=== PATIENT | female | born 1955 | race Two or more races ===

== ENCOUNTER 2023-04-06 23:01 | Inpatient (IN) | payer OTHER, MEDICAID ==
[~2023-04-06] VITALS: Ht 160 cm; Wt 55.1 kg
[2023-04-06 23:40] VITALS: PULSE 90; RESP 15; O2SAT 93
[2023-04-07] VITALS (10 sets, daily range): BP systolic 91–122; BP diastolic 55–90; PULSE 84–95; RESP 12–18; TEMP 97.5–97.9; O2SAT 96–100
[2023-04-07] MEDS ORDERED: DULO20CA PO (00:46)
[2023-04-07] MEDS ORDERED: PREG150C PO (00:46)
[2023-04-07] MEDS ORDERED: HYDR-4798 PO (00:46)
[2023-04-07] MEDS ORDERED: MAGNESIUM SULFATE 1GM/100ML 100 ML IV ONE (01:00)
[2023-04-07] MEDS ORDERED: ALBUMIN 25% 100 ML IV ONE (01:15)
[2023-04-07] MEDS ORDERED: LACTATED RINGER'S 1,000 ML IV ONE (01:15)
[2023-04-07] MEDS ORDERED: fentaNYL CITRATE 100 MCG/2 ML VL IV ONE (01:15)
[2023-04-07] MEDS ORDERED: ONDANSETRON HCL 4 MG/2 ML VIAL IV ONE (01:15)
[2023-04-07 01:20] LABS: Alanine Aminotransferase 288 U/L (7-40); Albumin 3.1 g/dL (3.2-4.8); Alkaline Phosphatase 431 U/L (46-116); Anion Gap 8 (5-15); Aspartate Aminotransferase 298 U/L (13-40); BUN/Creatinine Ratio 16.4 (10.0-20.0); Blood Urea Nitrogen 18 mg/dL (9-23); Calcium 8.1 mg/dL (8.7-10.4); Carbon Dioxide 21 mmol/L (20-30); Chloride 99 mmol/L (98-107); Glucose 107 mg/dL (74-106); Magnesium 1.9 mg/dL (1.6-2.6); Potassium 3.5 mmol/L (3.5-5.1); Sodium 128 mmol/L (136-145)
[2023-04-07 01:21] LABS: Bilirubin, Total 1.6 mg/dL (0.2-1.0); Total Protein 6.5 g/dL (5.7-8.2)
[2023-04-07 01:25] LABS: Hematocrit 30.6 % (36.0-46.0); Hemoglobin 8.8 g/dL (12.2-16.2); Mean Corpuscular Hemoglobin 19.1 pg (28.0-32.0); Mean Corpuscular Hgb Conc. 28.7 g/dL (32.0-36.0); Mean Corpuscular Volume 66.7 fL (80.0-100.0); White Blood Cell 19.3 10^3/uL (4.4-10.8)
[2023-04-07 01:28] LABS: INR 1.35 (0.9-1.15); Partial Thromboplastin Time 28.5 SEC (24.5-34.5); Prothrombin Time 13.9 sec (9.3-11.8)
[2023-04-07 01:33] LABS: Basophils % (manual) 0 (0.0-2.0); Blast Cells 0; Eosinophils % (manual) 0 (0-7); Metamyelocytes % 0; Myelocytes % 0; Promyelocytes % 0; Reactive Lymphocytes 0
[2023-04-07] MEDS ORDERED: VANCOMYCIN 1GM/250ML 250 ML IV ONE (02:00)
[2023-04-07] MEDS ORDERED: PIPERACILLIN-TAZOB 3.375GM 100 ML IV ONE (02:00)
[2023-04-07] MEDS ORDERED: LACTATED RINGER'S 1,350 ML IV ONE (02:00)
[2023-04-07] MEDS ORDERED: ENOXAPARIN SOD 60 MG/0.6 ML SYRINGE SC ONE (02:30)
[2023-04-07 03:05] LABS: Band Neutrophils % (manual) 4; Lymphocytes % (manual) 14 (10.0-50.0); Monocytes % (manual) 2 (0-12)
[2023-04-07 03:06] LABS: Anisocytosis Slight; Hypochromia Marked
[2023-04-07 03:08] LABS: Platelet Estimate Adequa
[2023-04-07] MEDS ORDERED: SODIUM CHLORIDE 0.9% 1,000 ML IV SCH (09:45)
[2023-04-07] MEDS ORDERED: ALBUTEROL SULF 2.5 MG/0.5ML(0.5%) NEB SOLN NEB PRN (09:45)
[2023-04-07] MEDS ORDERED: cefTRIAXone 1GM/50ML D5W 50 ML IV SCH (09:46)
[2023-04-07] MEDS ORDERED: AZITHROMYCIN 500MG/ 250ML 250 ML IV SCH (10:00)
[2023-04-07 10:31] LABS: Base Excess -4.4 mmol/L (-2.0-2.0)
[2023-04-07] MEDS: ALBUTEROL SULF 2.5 MG/0.5ML(0.5%) NEB SOLN NEB PRN (10:52)
[2023-04-07] MEDS: IPRATROPIUM BROM 0.5 MG/2.5ML INH SOL NEB PRN (10:52)
[2023-04-07 13:14] LABS: Hematocrit 24.9 % (36.0-46.0); Hemoglobin 7.1 g/dL (12.2-16.2)
[2023-04-07 15:11] LABS: Hepatitis B Surface Antigen Negative (Negative)
[2023-04-07 15:31] LABS: Hepatitis A Ab IgM Negative
[2023-04-07 15:32] LABS: Hepatitis B Core IgM Negative; Hepatitis C Antibody Negative (Negative)
[2023-04-07 16:05] LABS: Urine Bacteria FEW /hpf (None Seen); Urine Blood TRACE /uL (Negative); Urine Clarity HAZY (Clear); Urine Color Yellow (Yellow); Urine Protein, UAD 1+ (Negative); Urine Specific Gravity 1.021 (1.001-1.035); Urine Urobilinogen Normal (Negative); Urine WBC 68 /hpf (0 - 5)
[2023-04-07 16:09] LABS: Alanine Aminotransferase 242 U/L (7-40); Alkaline Phosphatase 363 U/L (46-116); Anion Gap 6 (5-15); BUN/Creatinine Ratio 14.9 (10.0-20.0); Blood Urea Nitrogen 15 mg/dL (9-23); Carbon Dioxide 24 mmol/L (20-30); Chloride 100 mmol/L (98-107); Glucose 121 mg/dL (74-106); Potassium 3.2 mmol/L (3.5-5.1); Sodium 130 mmol/L (136-145)
[2023-04-07 16:10] LABS: Albumin 3.3 g/dL (3.2-4.8); Aspartate Aminotransferase 172 U/L (13-40); Bilirubin, Total 1.4 mg/dL (0.2-1.0); Lactic Acid w/Reflex 2.8 mmol/L (0.4-2.0); Total Protein 6.4 g/dL (5.7-8.2)
[2023-04-07 16:14] LABS: Sodium Urine < 10 mmol/L (40-220)
[2023-04-07 16:21] LABS: Creatinine, Urine 61.11 mg/dL (30.0-125.0)
[2023-04-07 16:22] LABS: Amphetamine Screen, Urine Neg (NEGATIVE); Barbiturate Scree,Urine Neg (NEGATIVE); Benzodiazephine Screen, Urine Neg (NEGATIVE); Cannabinoid Screen, Urine Pos (NEGATIVE); Cocaine Screen, Urine Neg (NEGATIVE); Opiate Scree,Urine Pos (NEGATIVE); Phencyclidine Screen, Urine Neg (NEGATIVE)
[2023-04-07] MEDS: HYDROcodone-ACET 5/325MG TAB PO PRN (16:24)
[2023-04-07] MEDS ORDERED: AMIODARONE HCL 200 MG TAB PO ONE (16:45)
[2023-04-07] MEDS ORDERED: FUROSEMIDE 20 MG/2 ML VIAL IV ONE (16:45)
[2023-04-07] MEDS ORDERED: PANTOPRAZOLE 40 MG/10 ML VIAL INJ IV ONE (16:45)
[2023-04-07] MEDS ORDERED: DOBUTamine 1000MCG/ML 250 ML IV SCH (16:45)
[2023-04-07] MEDS ORDERED: POTASSIUM EFFERVESENT TAB 25 MEQ PO ONE (16:45)
[2023-04-07 17:08] LABS: COVID19 ANTIGEN SOFIA FIA NEGATIVE (NEGATIVE)
[2023-04-07 17:10] LABS: Triglycerides 129 mg/dL (< 150)
[2023-04-07 17:11] LABS: LDL Cholesterol 42 mg/dL (< 100)
[2023-04-07 17:12] LABS: Cholesterol 80 mg/dL (< 200); HDL Cholesterol < 5 mg/dL (40-59)
[2023-04-07] MEDS: FUROSEMIDE 20 MG/2 ML VIAL IV SCH (18:23)
[2023-04-07] MEDS ORDERED: SACUBITRIL-VALSARTAN 24mg/26mg TAB PO SCH (22:00)
[2023-04-07] MEDS: AMIODARONE HCL 200 MG TAB PO SCH (22:01)
[2023-04-08] VITALS (46 sets, daily range): BP systolic 72–120; BP diastolic 38–60; PULSE 54–104; RESP 10–21; TEMP 97–98.6; O2SAT 90–98
[2023-04-08 00:04] LABS: Hematocrit 21.8 % (36.0-46.0)
[2023-04-08 00:16] LABS: Hemoglobin 6.6 g/dL (12.2-16.2)
[2023-04-08] MEDS ORDERED: SODIUM CHLORIDE 0.9% 500 ML IV ONE (05:00)
[2023-04-08] MEDS: FUROSEMIDE 20 MG/2 ML VIAL IV SCH ×2 (06:34→18:11)
[2023-04-08] MEDS: EMPAGLIFLOZIN 10 MG TAB PO SCH (06:34)
[2023-04-08] MEDS ORDERED: NOREPINEPHRINE 8 MG/250ML KIT 250 ML IV ONE (07:16)
[2023-04-08] MEDS: NOREPINEPHRINE BITARTRATE 16 MG in SODIUM CHL 0.9% 234 ML IV SCH (07:30)
[2023-04-08 08:07] LABS: RPR Non Reactive (Non Reactive)
[2023-04-08] MEDS ORDERED: PIPERACILLIN-TAZOB 3.375GM 100 ML IV SCH (09:00)
[2023-04-08] MEDS ORDERED: ENOXAPARIN SOD 40 MG/0.4 ML SYRINGE SC SCH (10:00)
[2023-04-08] MEDS ORDERED: VANCOMYCIN PER PHARMACY 0 MG IV SCH (10:00)
[2023-04-08] MEDS: AMIODARONE HCL 200 MG TAB PO SCH ×2 (10:00→22:38)
[2023-04-08] MEDS: PANTOPRAZOLE 40 MG/10 ML VIAL INJ IV SCH (10:01)
[2023-04-08] MEDS: VANCOMYCIN 1GM/250ML 250 ML IV SCH ×2 (10:06→22:29)
[2023-04-08] MEDS ORDERED: POTASSIUM CHL 20MEQ/100ML 100 ML IV ONE (13:30)
[2023-04-08 14:16] LABS: Basophils # (auto) 0 10 ^3/uL (0-0.2); Basophils % (auto) 0.3 % (0.0-2.0); Eosinophils # (auto) 0.1 10 ^3/uL (0-0.8); Eosinophils % (auto) 0.5 % (0.0-7.0); Hematocrit 32.3 % (36.0-46.0); Lymphocytes # (auto) 1.1 10 ^3/uL (0.4-5.4); Lymphocytes % (auto) 8.2 % (10.0-50.0); Mean Corpuscular Hemoglobin 22.5 pg (28.0-32.0); Mean Corpuscular Hgb Conc. 31.1 g/dL (32.0-36.0); Mean Corpuscular Volume 72.3 fL (80.0-100.0); Monocytes # (auto) 0.7 10 ^3/uL (0-1.3); Monocytes % (auto) 5.2 % (0.0-12.0); Neutrophils # (auto) 11.7 10 ^3/uL (1.6-8.6); Neutrophils % (auto) 85.8 % (37.0-80.0); Nucleated Red Blood Cells % 0.3 %; Red Blood Cells 4.47 10^6/uL (4.0-5.20); White Blood Cell 13.6 10^3/uL (4.4-10.8)
[2023-04-08 14:17] LABS: Red Cell Distribution Width 28.5 % (11.8-14.3)
[2023-04-08 14:38] LABS: Alanine Aminotransferase 143 U/L (7-40); Albumin 2.6 g/dL (3.2-4.8); Alkaline Phosphatase 269 U/L (46-116); Anion Gap 4 (5-15); Aspartate Aminotransferase 84 U/L (13-40); BUN/Creatinine Ratio 13.5 (10.0-20.0); Bilirubin, Total 1.9 mg/dL (0.2-1.0); Blood Urea Nitrogen 17 mg/dL (9-23); Calcium 7.4 mg/dL (8.5-10.1); Carbon Dioxide 24 mmol/L (20-30); Chloride 103 mmol/L (98-107); Glucose 109 mg/dL (74-106); Magnesium 1.8 mg/dL (1.6-2.6); Potassium 3.8 mmol/L (3.5-5.1); Sodium 131 mmol/L (136-145); Total Protein 5.3 g/dL (5.7-8.2)
[2023-04-08] MEDS: CEFEPIME 2GM/50ML NS 50 ML IV SCH (23:49)
[2023-04-09] VITALS (52 sets, daily range): BP systolic 82–118; BP diastolic 47–68; PULSE 75–102; RESP 13–21; TEMP 97.6–98.3; O2SAT 83–99
[2023-04-09 05:10] LABS: Basophils # (auto) 0 10 ^3/uL (0-0.2); Basophils % (auto) 0.2 % (0.0-2.0); Eosinophils # (auto) 0.1 10 ^3/uL (0-0.8); Eosinophils % (auto) 0.5 % (0.0-7.0); Monocytes # (auto) 0.9 10 ^3/uL (0-1.3)
[2023-04-09 05:13] LABS: Hematocrit 35.4 % (36.0-46.0); Hemoglobin 11.1 g/dL (12.2-16.2); Lymphocytes # (auto) 1.5 10 ^3/uL (0.4-5.4); Lymphocytes % (auto) 10.5 % (10.0-50.0); Mean Corpuscular Hemoglobin 22.7 pg (28.0-32.0); Mean Corpuscular Hgb Conc. 31.4 g/dL (32.0-36.0); Mean Corpuscular Volume 72.1 fL (80.0-100.0); Monocytes % (auto) 6.2 % (0.0-12.0); Neutrophils # (auto) 11.7 10 ^3/uL (1.6-8.6); Neutrophils % (auto) 82.6 % (37.0-80.0); Nucleated Red Blood Cells % 0.5 %; Red Blood Cells 4.91 10^6/uL (4.0-5.20); White Blood Cell 14.2 10^3/uL (4.4-10.8)
[2023-04-09 05:16] LABS: Anion Gap 7 (5-15); Carbon Dioxide 24 mmol/L (20-30); Chloride 100 mmol/L (98-107); Potassium 3.4 mmol/L (3.5-5.1); Sodium 131 mmol/L (136-145)
[2023-04-09 05:17] LABS: Calcium 7.8 mg/dL (8.7-10.4)
[2023-04-09 05:22] LABS: BUN/Creatinine Ratio 10.4 (10.0-20.0); Blood Urea Nitrogen 14 mg/dL (9-23); Glucose 116 mg/dL (74-106)
[2023-04-09 05:31] LABS: Red Cell Distribution Width 28.8 % (11.8-14.3)
[2023-04-09] MEDS: EMPAGLIFLOZIN 10 MG TAB PO SCH (06:07)
[2023-04-09] MEDS: FUROSEMIDE 20 MG/2 ML VIAL IV SCH ×2 (06:07→17:52)
[2023-04-09] MEDS: IPRATROPIUM BROM 0.5 MG/2.5ML INH SOL NEB PRN (06:42)
[2023-04-09] MEDS: ALBUTEROL SULF 2.5 MG/0.5ML(0.5%) NEB SOLN NEB PRN (06:43)
[2023-04-09] MEDS: NOREPINEPHRINE BITARTRATE 16 MG in SODIUM CHL 0.9% 234 ML IV SCH (07:30)
[2023-04-09 07:44] LABS: Platelet Estimate Adequate
[2023-04-09 07:45] LABS: Anisocytosis Slight; Hypochromia Slight
[2023-04-09 07:46] LABS: Target Cell FEW
[2023-04-09] MEDS: VANCOMYCIN 1GM/250ML 250 ML IV SCH ×2 (10:37→21:59)
[2023-04-09] MEDS: AMIODARONE HCL 200 MG TAB PO SCH ×2 (10:39→22:00)
[2023-04-09] MEDS: PANTOPRAZOLE 40 MG/10 ML VIAL INJ IV SCH (10:39)
[2023-04-09] MEDS ORDERED: POTASSIUM CHL 20 Meq TABLET PO ONE ×2 (10:45→16:15)
[2023-04-09] MEDS: CEFEPIME 2GM/50ML NS 50 ML IV SCH ×2 (12:00→21:59)
[2023-04-09] MEDS: DOCUSATE SOD 100 MG CAP PO SCH (22:00)
[2023-04-10] VITALS (24 sets, daily range): BP systolic 96–126; BP diastolic 50–83; PULSE 70–91; RESP 13–22; TEMP 97.6–99.2; O2SAT 85–98
[2023-04-10 05:20] LABS: Chloride 100 mmol/L (98-107); Sodium 133 mmol/L (136-145)
[2023-04-10 05:21] LABS: Anion Gap 6 (5-15); Calcium 7.7 mg/dL (8.7-10.4); Carbon Dioxide 27 mmol/L (20-30)
[2023-04-10 05:26] LABS: BUN/Creatinine Ratio 8.3 (10.0-20.0); Blood Urea Nitrogen 10 mg/dL (9-23); Glucose 100 mg/dL (74-106)
[2023-04-10 05:37] LABS: Potassium 2.8 mmol/L (3.5-5.1)
[2023-04-10 05:42] LABS: Basophils # (auto) 0 10 ^3/uL (0-0.2); Eosinophils # (auto) 0.3 10 ^3/uL (0-0.8); Eosinophils % (auto) 2.4 % (0.0-7.0); Hematocrit 36.3 % (36.0-46.0); Hemoglobin 11.1 g/dL (12.2-16.2); Lymphocytes # (auto) 1.2 10 ^3/uL (0.4-5.4); Lymphocytes % (auto) 11.3 % (10.0-50.0); Mean Corpuscular Hemoglobin 22.6 pg (28.0-32.0); Mean Corpuscular Hgb Conc. 30.7 g/dL (32.0-36.0); Mean Corpuscular Volume 73.7 fL (80.0-100.0); Monocytes # (auto) 0.7 10 ^3/uL (0-1.3); Monocytes % (auto) 6.7 % (0.0-12.0); Neutrophils # (auto) 8.6 10 ^3/uL (1.6-8.6); Neutrophils % (auto) 79.6 % (37.0-80.0); Nucleated Red Blood Cells % 0.4 %; Red Blood Cells 4.92 10^6/uL (4.0-5.20); White Blood Cell 10.8 10^3/uL (4.4-10.8)
[2023-04-10 05:43] LABS: Red Cell Distribution Width 29.5 % (11.8-14.3)
[2023-04-10] MEDS: FUROSEMIDE 20 MG/2 ML VIAL IV SCH ×2 (05:54→17:03)
[2023-04-10] MEDS: POTASSIUM CHL 20MEQ/100ML 100 ML IV SCH ×3 (05:55→09:45)
[2023-04-10 06:27] LABS: Platelet Estimate Adequate
[2023-04-10 06:28] LABS: Anisocytosis Slight; Hypochromia Slight; Target Cell FEW
[2023-04-10 06:29] LABS: Stomatocytes Few; Tear Drop Cells FEW
[2023-04-10] MEDS: EMPAGLIFLOZIN 10 MG TAB PO SCH (06:44)
[2023-04-10] MEDS: NOREPINEPHRINE BITARTRATE 16 MG in SODIUM CHL 0.9% 234 ML IV SCH (07:30)
[2023-04-10] MEDS: DOCUSATE SOD 100 MG CAP PO SCH ×2 (07:45→22:00)
[2023-04-10] MEDS: AMIODARONE HCL 200 MG TAB PO SCH ×2 (07:52→22:55)
[2023-04-10] MEDS: PANTOPRAZOLE 40 MG/10 ML VIAL INJ IV SCH (07:53)
[2023-04-10] MEDS: CEFEPIME 2GM/50ML NS 50 ML IV SCH ×2 (08:00→22:47)
[2023-04-10] MEDS: VANCOMYCIN 1GM/250ML 250 ML IV SCH (10:00)
[2023-04-10] MEDS ORDERED: POTASSIUM CHLORIDE 80 MEQ, LIDOCAINE 1% (LOCAL ANESTH.) 6 ML in SODIUM CHL 0.9% 500 ML IV ONE (13:15)
[2023-04-10] MEDS: VANCOMYCIN HCL 125MG/5ML ORAL SOL PO SCH ×2 (17:03→22:00)
[2023-04-10 18:13] LABS: Potassium 3.3 mmol/L (3.5-5.1)
[2023-04-10 18:19] LABS: Magnesium 1.6 mg/dL (1.6-2.6)
[2023-04-11] VITALS (20 sets, daily range): BP systolic 108–127; BP diastolic 56–79; PULSE 73–106; RESP 8–22; TEMP 97.4–98.3; O2SAT 91–98
[2023-04-11 05:04] LABS: Basophils # (auto) 0 10 ^3/uL (0-0.2); Eosinophils # (auto) 0.1 10 ^3/uL (0-0.8); Lymphocytes # (auto) 1.4 10 ^3/uL (0.4-5.4); Lymphocytes % (auto) 15.6 % (10.0-50.0); Neutrophils # (auto) 6.4 10 ^3/uL (1.6-8.6); Nucleated Red Blood Cells % 0.2 %
[2023-04-11 05:07] LABS: Basophils % (auto) 0.1 % (0.0-2.0); Eosinophils % (auto) 0.7 % (0.0-7.0); Hematocrit 36.9 % (36.0-46.0); Hemoglobin 11.7 g/dL (12.2-16.2); Mean Corpuscular Hgb Conc. 31.6 g/dL (32.0-36.0); Mean Corpuscular Volume 72.8 fL (80.0-100.0); Monocytes # (auto) 1.1 10 ^3/uL (0-1.3); Monocytes % (auto) 12.2 % (0.0-12.0); Neutrophils % (auto) 71.4 % (37.0-80.0); Red Blood Cells 5.06 10^6/uL (4.0-5.20)
[2023-04-11 05:09] LABS: Red Cell Distribution Width 29.9 % (11.8-14.3)
[2023-04-11 05:12] LABS: Anion Gap 6 (5-15); Carbon Dioxide 28 mmol/L (20-30); Chloride 98 mmol/L (98-107); Sodium 132 mmol/L (136-145)
[2023-04-11 05:13] LABS: Calcium 7.9 mg/dL (8.7-10.4)
[2023-04-11 05:18] LABS: BUN/Creatinine Ratio 9.3 (10.0-20.0); Blood Urea Nitrogen 11 mg/dL (9-23); Glucose 115 mg/dL (74-106)
[2023-04-11 05:39] LABS: Potassium 2.7 mmol/L (3.5-5.1)
[2023-04-11 06:00] LABS: Anisocytosis Marked; Platelet Estimate Adequate
[2023-04-11] MEDS: VANCOMYCIN HCL 125MG/5ML ORAL SOL PO SCH ×3 (06:00→22:00)
[2023-04-11 06:01] LABS: Hypochromia Moderate
[2023-04-11] MEDS ORDERED: POTASSIUM CHL 20 Meq TABLET PO ONE (07:15)
[2023-04-11] MEDS: FUROSEMIDE 20 MG/2 ML VIAL IV SCH ×2 (08:04→18:00)
[2023-04-11] MEDS: EMPAGLIFLOZIN 10 MG TAB PO SCH (08:05)
[2023-04-11] MEDS: CEFEPIME 2GM/50ML NS 50 ML IV SCH (10:11)
[2023-04-11] MEDS: PANTOPRAZOLE 40 MG/10 ML VIAL INJ IV SCH (10:11)
[2023-04-11] MEDS: FLORASTOR (S. BOULARDII) 250 MG CAP PO SCH (10:13)
[2023-04-11] MEDS: DOCUSATE SOD 100 MG CAP PO SCH (10:13)
[2023-04-11] MEDS: AMIODARONE HCL 200 MG TAB PO SCH ×2 (10:13→23:26)
[2023-04-11] MEDS ORDERED: POTASSIUM CHLORIDE 40 MEQ, LIDOCAINE 1% (LOCAL ANESTH.) 4 ML in SODIUM CHL 0.9% 250 ML IV ONE (12:45)
[2023-04-11] MEDS ORDERED: POTASSIUM CHL 20MEQ/100ML 100 ML IV SCH (12:45)
[2023-04-11] MEDS: Ensure HIGH Protein Chocolate 8oz Bottle PO SCH (18:00)
[2023-04-12] VITALS (12 sets, daily range): BP systolic 108–146; BP diastolic 63–96; PULSE 54–104; RESP 16–20; TEMP 97.8–98.2; O2SAT 92–97
[2023-04-12] MEDS: EMPAGLIFLOZIN 10 MG TAB PO SCH (05:56)
[2023-04-12] MEDS: VANCOMYCIN HCL 125MG/5ML ORAL SOL PO SCH ×4 (05:57→21:26)
[2023-04-12] MEDS: FUROSEMIDE 20 MG/2 ML VIAL IV SCH ×2 (05:58→18:01)
[2023-04-12] MEDS: Ensure HIGH Protein Chocolate 8oz Bottle PO SCH ×3 (08:00→18:00)
[2023-04-12] MEDS: FLORASTOR (S. BOULARDII) 250 MG CAP PO SCH (10:24)
[2023-04-12] MEDS: PANTOPRAZOLE 40 MG/10 ML VIAL INJ IV SCH (10:24)
[2023-04-12] MEDS: AMIODARONE HCL 200 MG TAB PO SCH ×2 (10:24→21:27)
[2023-04-12] MEDS: HYDROcodone-ACET 5/325MG TAB PO PRN (10:25)
[2023-04-12 15:03] LABS: Basophils # (auto) 0 10 ^3/uL (0-0.2); Eosinophils # (auto) 0.1 10 ^3/uL (0-0.8); Lymphocytes # (auto) 1.4 10 ^3/uL (0.4-5.4); Lymphocytes % (auto) 11.2 % (10.0-50.0)
[2023-04-12 15:04] LABS: Basophils % (auto) 0.1 % (0.0-2.0); Eosinophils % (auto) 0.5 % (0.0-7.0); Hematocrit 41.7 % (36.0-46.0); Mean Corpuscular Hemoglobin 22.8 pg (28.0-32.0); Mean Corpuscular Hgb Conc. 31.2 g/dL (32.0-36.0); Monocytes # (auto) 0.1 10 ^3/uL (0-1.3); Monocytes % (auto) 0.6 % (0.0-12.0); Neutrophils % (auto) 87.6 % (37.0-80.0); Nucleated Red Blood Cells % 0.1 %; Red Blood Cells 5.72 10^6/uL (4.0-5.20); White Blood Cell 12.6 10^3/uL (4.4-10.8)
[2023-04-12 15:13] LABS: Red Cell Distribution Width 30.8 % (11.8-14.3)
[2023-04-12] MEDS ORDERED: CARVEDILOL 3.125 MG TAB PO ONE (15:30)
[2023-04-12] MEDS: CARVEDILOL 3.125 MG TAB PO SCH (21:27)
[2023-04-12 21:42] LABS: Alanine Aminotransferase 82 U/L (7-40); Albumin 3.3 g/dL (3.2-4.8); Alkaline Phosphatase 272 U/L (46-116); Anion Gap 5 (5-15); Aspartate Aminotransferase 34 U/L (13-40); BUN/Creatinine Ratio 9.5 (10.0-20.0); Bilirubin, Total 1.5 mg/dL (0.2-1.0); Blood Urea Nitrogen 11 mg/dL (9-23); Calcium 8.2 mg/dL (8.7-10.4); Carbon Dioxide 32 mmol/L (20-30); Chloride 94 mmol/L (98-107); Glucose 122 mg/dL (74-106); Magnesium 1.6 mg/dL (1.6-2.6); Sodium 131 mmol/L (136-145)
[2023-04-12 21:43] LABS: Total Protein 6.2 g/dL (5.7-8.2)
[2023-04-12 21:45] LABS: Potassium 2.3 mmol/L (3.5-5.1)
[2023-04-12] MEDS: POTASSIUM CHL 20 Meq TABLET PO SCH (23:00)
[2023-04-13] VITALS (8 sets, daily range): BP systolic 95–150; BP diastolic 51–87; PULSE 64–82; RESP 16–18; TEMP 97.6–98.7; O2SAT 94–98
[2023-04-13] MEDS: POTASSIUM CHL 20 Meq TABLET PO SCH (00:35)
[2023-04-13] MEDS: EMPAGLIFLOZIN 10 MG TAB PO SCH (05:50)
[2023-04-13] MEDS: FUROSEMIDE 20 MG/2 ML VIAL IV SCH (05:50)
[2023-04-13] MEDS: VANCOMYCIN HCL 125MG/5ML ORAL SOL PO SCH ×4 (05:51→21:43)
[2023-04-13] MEDS: Ensure HIGH Protein Chocolate 8oz Bottle PO SCH ×3 (08:00→17:09)
[2023-04-13] MEDS: POTASSIUM CHL 20MEQ/100ML 100 ML IV SCH ×2 (08:39→10:21)
[2023-04-13 09:40] LABS: Basophils # (auto) 0.1 10 ^3/uL (0-0.2); Eosinophils # (auto) 0 10 ^3/uL (0-0.8); Eosinophils % (auto) 0.4 % (0.0-7.0); Mean Corpuscular Hemoglobin 22.8 pg (28.0-32.0)
[2023-04-13 09:41] LABS: Basophils % (auto) 1.2 % (0.0-2.0); Hemoglobin 12.4 g/dL (12.2-16.2); Lymphocytes # (auto) 1.5 10 ^3/uL (0.4-5.4); Lymphocytes % (auto) 13.1 % (10.0-50.0); Mean Corpuscular Hgb Conc. 30.9 g/dL (32.0-36.0); Mean Corpuscular Volume 73.8 fL (80.0-100.0); Monocytes % (auto) 8.8 % (0.0-12.0); Neutrophils # (auto) 8.5 10 ^3/uL (1.6-8.6); Neutrophils % (auto) 76.5 % (37.0-80.0); Nucleated Red Blood Cells % 0.1 %; Red Blood Cells 5.42 10^6/uL (4.0-5.20); White Blood Cell 11.1 10^3/uL (4.4-10.8)
[2023-04-13 09:43] LABS: Red Cell Distribution Width 31.3 % (11.8-14.3)
[2023-04-13 09:51] LABS: Alanine Aminotransferase 84 U/L (7-40); Alkaline Phosphatase 267 U/L (46-116); Aspartate Aminotransferase 50 U/L (13-40); Blood Urea Nitrogen 8 mg/dL (9-23); Calcium 8.5 mg/dL (8.5-10.1); Carbon Dioxide 29 mmol/L (20-30); Glucose 108 mg/dL (74-106); Magnesium 1.4 mg/dL (1.6-2.6)
[2023-04-13 09:52] LABS: Bilirubin, Total 1.8 mg/dL (0.2-1.0); Total Protein 6.6 g/dL (5.7-8.2)
[2023-04-13] MEDS ORDERED: LOSARTAN POTASSIUM 50 MG TAB PO SCH (10:00)
[2023-04-13] MEDS ORDERED: POTASSIUM CHL 20 Meq TABLET PO SCH (10:00)
[2023-04-13] MEDS: DULoxetine HCL 30 MG CAP PO SCH (10:21)
[2023-04-13] MEDS: CARVEDILOL 3.125 MG TAB PO SCH ×2 (10:22→21:44)
[2023-04-13] MEDS: PANTOPRAZOLE 40 MG TAB PO SCH (10:23)
[2023-04-13] MEDS: FLORASTOR (S. BOULARDII) 250 MG CAP PO SCH (10:23)
[2023-04-13] MEDS: AMIODARONE HCL 200 MG TAB PO SCH ×3 (10:23→21:43)
[2023-04-13] MEDS: SPIRONOLACTONE 25 MG TAB PO SCH (10:23)
[2023-04-13 10:57] LABS: Anion Gap 9 (5-15); Chloride 95 mmol/L (98-107); Potassium 3.1 mmol/L (3.5-5.1); Sodium 133 mmol/L (136-145)
[2023-04-13] MEDS ORDERED: metroNIDAZOLE 500 MG TAB PO ONE (11:30)
[2023-04-13 11:59] LABS: Anisocytosis Moderate; Hypochromia Moderate; Platelet Estimate Adequate
[2023-04-13 12:00] LABS: Target Cell FEW
[2023-04-13] MEDS: MAGNESIUM SULFATE 1GM/100ML 100 ML IV SCH ×4 (12:00→14:37)
[2023-04-13] MEDS: metroNIDAZOLE 500 MG TAB PO SCH ×2 (14:38→21:44)
[2023-04-13] MEDS ORDERED: FUROSEMIDE 40 MG/4 ML VIAL IV SCH (18:00)
[2023-04-14] VITALS (8 sets, daily range): BP systolic 82–110; BP diastolic 43–84; PULSE 58–79; RESP 16–18; TEMP 97.4–98.5; O2SAT 92–98
[2023-04-14] MEDS: VANCOMYCIN HCL 125MG/5ML ORAL SOL PO SCH ×4 (05:47→22:19)
[2023-04-14] MEDS: EMPAGLIFLOZIN 10 MG TAB PO SCH (05:48)
[2023-04-14] MEDS: metroNIDAZOLE 500 MG TAB PO SCH ×3 (05:48→22:18)
[2023-04-14 06:02] LABS: Basophils # (auto) 0 10 ^3/uL (0-0.2); Eosinophils # (auto) 0.1 10 ^3/uL (0-0.8); Eosinophils % (auto) 0.7 % (0.0-7.0); Hemoglobin 11.6 g/dL (12.2-16.2); Nucleated Red Blood Cells % 0.1 %
[2023-04-14 06:05] LABS: Basophils % (auto) 0.5 % (0.0-2.0); Hematocrit 36.6 % (36.0-46.0); Lymphocytes # (auto) 1.5 10 ^3/uL (0.4-5.4); Lymphocytes % (auto) 15.1 % (10.0-50.0); Mean Corpuscular Hemoglobin 23.4 pg (28.0-32.0); Mean Corpuscular Hgb Conc. 31.7 g/dL (32.0-36.0); Mean Corpuscular Volume 73.9 fL (80.0-100.0); Monocytes % (auto) 10.1 % (0.0-12.0); Neutrophils # (auto) 7.1 10 ^3/uL (1.6-8.6); Neutrophils % (auto) 73.6 % (37.0-80.0); Red Blood Cells 4.96 10^6/uL (4.0-5.20)
[2023-04-14 06:21] LABS: Red Cell Distribution Width 31.6 % (11.8-14.3)
[2023-04-14 06:22] LABS: White Blood Cell 9.7 10^3/uL (4.4-10.8)
[2023-04-14 06:23] LABS: Alanine Aminotransferase 66 U/L (7-40); Albumin 3.2 g/dL (3.2-4.8); Alkaline Phosphatase 266 U/L (46-116); Anion Gap 4 (5-15); Aspartate Aminotransferase 37 U/L (13-40); BUN/Creatinine Ratio 8.5 (10.0-20.0); Bilirubin, Total 1.3 mg/dL (0.2-1.0); Blood Urea Nitrogen 13 mg/dL (9-23); Calcium 8.6 mg/dL (8.7-10.4); Carbon Dioxide 32 mmol/L (20-30); Chloride 94 mmol/L (98-107); Glucose 106 mg/dL (74-106); Sodium 130 mmol/L (136-145); Total Protein 6.1 g/dL (5.7-8.2)
[2023-04-14] MEDS ORDERED: FUROSEMIDE 40 MG/4 ML VIAL IV SCH (07:00)
[2023-04-14] MEDS ORDERED: POTASSIUM EFFERVESENT TAB 25 MEQ PO ONE (07:15)
[2023-04-14] MEDS ORDERED: POTASSIUM CHL 20 Meq TABLET PO ONE (07:30)
[2023-04-14] MEDS: Ensure HIGH Protein Chocolate 8oz Bottle PO SCH ×2 (08:00→12:00)
[2023-04-14] MEDS: SPIRONOLACTONE 25 MG TAB PO SCH (10:00)
[2023-04-14] MEDS: CARVEDILOL 3.125 MG TAB PO SCH ×2 (10:00→22:00)
[2023-04-14] MEDS: DULoxetine HCL 30 MG CAP PO SCH (10:13)
[2023-04-14] MEDS: FLORASTOR (S. BOULARDII) 250 MG CAP PO SCH (10:13)
[2023-04-14] MEDS: PANTOPRAZOLE 40 MG TAB PO SCH (10:13)
[2023-04-14] MEDS: AMIODARONE HCL 200 MG TAB PO SCH ×2 (10:13→22:18)
[2023-04-15] VITALS (10 sets, daily range): BP systolic 86–109; BP diastolic 50–56; PULSE 65–82; RESP 16–18; TEMP 98–98.9; O2SAT 89–97
[2023-04-15 06:17] LABS: Chloride 96 mmol/L (98-107); Potassium 3.7 mmol/L (3.5-5.1); Sodium 132 mmol/L (136-145)
[2023-04-15 06:18] LABS: Anion Gap 3 (5-15); Carbon Dioxide 33 mmol/L (20-30)
[2023-04-15 06:19] LABS: Calcium 8.5 mg/dL (8.7-10.4)
[2023-04-15 06:23] LABS: Glucose 91 mg/dL (74-106)
[2023-04-15 06:24] LABS: Blood Urea Nitrogen 16 mg/dL (9-23); Magnesium 2.1 mg/dL (1.6-2.6)
[2023-04-15 06:47] LABS: Basophils # (auto) 0 10 ^3/uL (0-0.2); Basophils % (auto) 0.5 % (0.0-2.0); Eosinophils # (auto) 0.1 10 ^3/uL (0-0.8); Eosinophils % (auto) 0.6 % (0.0-7.0); Hematocrit 34.9 % (36.0-46.0); Lymphocytes # (auto) 1.9 10 ^3/uL (0.4-5.4); Mean Corpuscular Hemoglobin 23.4 pg (28.0-32.0); Mean Corpuscular Hgb Conc. 31.6 g/dL (32.0-36.0); Mean Corpuscular Volume 74.1 fL (80.0-100.0); Monocytes # (auto) 0.7 10 ^3/uL (0-1.3); Monocytes % (auto) 8.2 % (0.0-12.0); Neutrophils # (auto) 6.2 10 ^3/uL (1.6-8.6); Neutrophils % (auto) 69.7 % (37.0-80.0); Nucleated Red Blood Cells % 0.2 %; Red Blood Cells 4.71 10^6/uL (4.0-5.20); White Blood Cell 8.8 10^3/uL (4.4-10.8)
[2023-04-15] MEDS: VANCOMYCIN HCL 125MG/5ML ORAL SOL PO SCH ×4 (07:16→21:29)
[2023-04-15] MEDS: EMPAGLIFLOZIN 10 MG TAB PO SCH (07:16)
[2023-04-15] MEDS: metroNIDAZOLE 500 MG TAB PO SCH ×3 (07:17→21:29)
[2023-04-15 07:47] LABS: Red Cell Distribution Width 32.5 % (11.8-14.3)
[2023-04-15] MEDS ORDERED: LOSARTAN POTASSIUM 50 MG TAB PO SCH (10:00)
[2023-04-15] MEDS: DULoxetine HCL 30 MG CAP PO SCH (10:14)
[2023-04-15] MEDS: PANTOPRAZOLE 40 MG TAB PO SCH (10:14)
[2023-04-15] MEDS: FUROSEMIDE 40 MG TAB PO SCH (10:14)
[2023-04-15] MEDS: AMIODARONE HCL 200 MG TAB PO SCH ×2 (10:15→21:29)
[2023-04-15] MEDS: CARVEDILOL 3.125 MG TAB PO SCH ×2 (10:15→22:00)
[2023-04-15] MEDS: SPIRONOLACTONE 25 MG TAB PO SCH (10:15)
[2023-04-15] MEDS: FLORASTOR (S. BOULARDII) 250 MG CAP PO SCH (10:16)
[2023-04-15] MEDS: HYDROcodone-ACET 5/325MG TAB PO PRN (21:34)
[2023-04-16] VITALS (9 sets, daily range): BP systolic 91–108; BP diastolic 41–64; PULSE 63–81; RESP 17–18; TEMP 97.8–98.6; O2SAT 93–100
[2023-04-16] MEDS: VANCOMYCIN HCL 125MG/5ML ORAL SOL PO SCH ×4 (06:36→21:22)
[2023-04-16] MEDS: metroNIDAZOLE 500 MG TAB PO SCH ×3 (06:36→21:22)
[2023-04-16] MEDS: EMPAGLIFLOZIN 10 MG TAB PO SCH (06:36)
[2023-04-16] MEDS: CARVEDILOL 3.125 MG TAB PO SCH ×2 (10:00→22:00)
[2023-04-16] MEDS: PANTOPRAZOLE 40 MG TAB PO SCH (10:21)
[2023-04-16] MEDS: DULoxetine HCL 30 MG CAP PO SCH (10:22)
[2023-04-16] MEDS: FLORASTOR (S. BOULARDII) 250 MG CAP PO SCH (10:22)
[2023-04-16] MEDS: SPIRONOLACTONE 25 MG TAB PO SCH (10:22)
[2023-04-16] MEDS: AMIODARONE HCL 200 MG TAB PO SCH ×2 (10:22→21:22)
[2023-04-16] MEDS: FUROSEMIDE 40 MG TAB PO SCH (10:23)
[2023-04-16] MEDS: LOSARTAN POTASSIUM 50 MG TAB PO SCH (13:30)
[2023-04-16 18:40] LABS: Chloride 98 mmol/L (98-107); Potassium 3.4 mmol/L (3.5-5.1); Sodium 134 mmol/L (136-145)
[2023-04-16 18:41] LABS: Anion Gap 4 (5-15); Calcium 8.5 mg/dL (8.7-10.4); Carbon Dioxide 32 mmol/L (20-30)
[2023-04-16 18:46] LABS: BUN/Creatinine Ratio 12.3 (10.0-20.0); Blood Urea Nitrogen 19 mg/dL (9-23); Glucose 100 mg/dL (74-106)
[2023-04-16] MEDS: HYDROcodone-ACET 5/325MG TAB PO PRN (22:42)
[2023-04-17 05:47] VITALS: BP 105/57; PULSE 65; RESP 18; TEMP 98.6; O2SAT 94
[2023-04-17] MEDS: metroNIDAZOLE 500 MG TAB PO SCH ×2 (06:05→14:00)
[2023-04-17] MEDS: VANCOMYCIN HCL 125MG/5ML ORAL SOL PO SCH ×2 (06:05→11:26)
[2023-04-17] MEDS: EMPAGLIFLOZIN 10 MG TAB PO SCH (06:05)
[2023-04-17 06:18] LABS: Eosinophils # (auto) 0.1 10 ^3/uL (0-0.8); Mean Corpuscular Volume 74.6 fL (80.0-100.0); Nucleated Red Blood Cells % 0.1 %
[2023-04-17 06:20] LABS: Basophils # (auto) 0 10 ^3/uL (0-0.2); Basophils % (auto) 0.6 % (0.0-2.0); Eosinophils % (auto) 1.1 % (0.0-7.0); Hematocrit 34.5 % (36.0-46.0); Lymphocytes # (auto) 1.5 10 ^3/uL (0.4-5.4); Mean Corpuscular Hemoglobin 23.8 pg (28.0-32.0); Monocytes # (auto) 0.7 10 ^3/uL (0-1.3); Monocytes % (auto) 10.9 % (0.0-12.0); Neutrophils # (auto) 4.3 10 ^3/uL (1.6-8.6); Neutrophils % (auto) 64.4 % (37.0-80.0); Red Blood Cells 4.62 10^6/uL (4.0-5.20); Red Cell Distribution Width 33.1 % (11.8-14.3); White Blood Cell 6.6 10^3/uL (4.4-10.8)
[2023-04-17 06:44] LABS: Chloride 99 mmol/L (98-107); Potassium 3.1 mmol/L (3.5-5.1); Sodium 135 mmol/L (136-145)
[2023-04-17 06:45] LABS: Anion Gap 3 (5-15); Calcium 8.3 mg/dL (8.7-10.4); Carbon Dioxide 33 mmol/L (20-30)
[2023-04-17 06:47] LABS: Hypochromia Slight; Platelet Estimate Adequate; Target Cell FEW
[2023-04-17 06:50] LABS: BUN/Creatinine Ratio 11.6 (10.0-20.0); Blood Urea Nitrogen 17 mg/dL (9-23); Glucose 88 mg/dL (74-106)
[2023-04-17 07:30] VITALS: PULSE 66
[2023-04-17] MEDS ORDERED: POTASSIUM EFFERVESENT TAB 25 MEQ PO ONE (07:30)
[2023-04-17] MEDS ORDERED: POTASSIUM CHL 20 Meq TABLET PO ONE (07:30)
[2023-04-17 09:00] VITALS: BP 97/52; PULSE 69; RESP 15; TEMP 97.8; O2SAT 96
[2023-04-17] MEDS: CARVEDILOL 3.125 MG TAB PO SCH (10:00)
[2023-04-17] MEDS: LOSARTAN POTASSIUM 50 MG TAB PO SCH (10:00)
[2023-04-17] MEDS: FUROSEMIDE 40 MG TAB PO SCH (10:00)
[2023-04-17] MEDS: DULoxetine HCL 30 MG CAP PO SCH (10:02)
[2023-04-17] MEDS: HYDROcodone-ACET 5/325MG TAB PO PRN (10:02)
[2023-04-17] MEDS: FLORASTOR (S. BOULARDII) 250 MG CAP PO SCH (10:02)
[2023-04-17] MEDS: PANTOPRAZOLE 40 MG TAB PO SCH (10:02)
[2023-04-17] MEDS: AMIODARONE HCL 200 MG TAB PO SCH (10:02)
[2023-04-17 10:22] VITALS: O2SAT 97
[2023-04-17] MEDS ORDERED: EMPA1TAB PO (11:06)
[2023-04-17] MEDS ORDERED: VANC125PO PO (11:06)
[2023-04-17] MEDS ORDERED: SPIR25TA PO (11:06)
[2023-04-17] MEDS ORDERED: SACC250C PO (11:06)
[2023-04-17] MEDS: SPIRONOLACTONE 25 MG TAB PO SCH (11:25)
[2023-04-17 13:00] VITALS: BP 112/77; PULSE 78; RESP 16; TEMP 98; O2SAT 98
[2023-04-17] MEDS ORDERED: ONDANSETRON HCL 4 MG/2 ML VIAL IV ONE (13:30)
[2023-04-17 14:08] VITALS: BP 107/62; PULSE 69; TEMP 36.6
== END 2023-04-17 16:30 | disposition home or self-care (01) | DRG 871 ==
LOC: EDBD 23:01 → ER 23:06 → TELE 04-07 09:41 → TELE-E-ADS 04-07 21:24 → DOU IN ICU 04-08 08:23 → ICU CENTRL 04-08 21:47 → DOU IN ICU 04-11 20:43 → EAST 04-12 02:00 → TELE-EAST 04-12 03:09
PROVIDERS: ADMIT Internal Medicine
PROC: 30233N1 Transfusion of Nonautologous Red Blood Cells into Peripheral Vein, Percutaneous Approach (ICD-10-PCS; principal; 2023-04-07)
PROC: 05HA33Z Insertion of Infusion Device into Left Brachial Vein, Percutaneous Approach (ICD-10-PCS; 2023-04-08)
DX: A41.9 Sepsis, unspecified organism (principal); G92.9 Unspecified toxic encephalopathy; I21.4 Non-ST elevation (NSTEMI) myocardial infarction; I50.23 Acute on chronic systolic (congestive) heart failure; J96.01 Acute respiratory failure with hypoxia; R57.1 Hypovolemic shock; R65.21 Severe sepsis with septic shock; K72.00 Acute and subacute hepatic failure without coma; J15.6 Pneumonia due to other Gram-negative bacteria; K92.2 Gastrointestinal hemorrhage, unspecified; N17.9 Acute kidney failure, unspecified; E44.1 Mild protein-calorie malnutrition; N39.0 Urinary tract infection, site not specified; D62 Acute posthemorrhagic anemia; L03.116 Cellulitis of left lower limb; L03.115 Cellulitis of right lower limb; I47.20 Ventricular tachycardia, unspecified; E87.1 Hypo-osmolality and hyponatremia; R79.89 Other specified abnormal findings of blood chemistry; K76.0 Fatty (change of) liver, not elsewhere classified; I34.0 Nonrheumatic mitral (valve) insufficiency; F17.200 Nicotine dependence, unspecified, uncomplicated; I11.0 Hypertensive heart disease with heart failure; K82.8 Other specified diseases of gallbladder; G89.29 Other chronic pain; Z20.822 Contact with and (suspected) exposure to COVID-19; E87.6 Hypokalemia; M54.9 Dorsalgia, unspecified; K80.50 Calculus of bile duct without cholangitis or cholecystitis without obstruction; G62.9 Polyneuropathy, unspecified; I48.0 Paroxysmal atrial fibrillation; Z79.891 Long term (current) use of opiate analgesic; Z79.899 Other long term (current) drug therapy; Z86.73 Personal history of transient ischemic attack (TIA), and cerebral infarction without residual deficits; Z68.21 Body mass index [BMI] 21.0-21.9, adult; Z98.82 Breast implant status; Z85.3 Personal history of malignant neoplasm of breast; Z78.9 Other specified health status
CPT/HCPCS: 36415; 36600; 70450; 71045; 76705; 80048; 80053; 80061; 80074; 80202; 80307; 80320; 81001; 82140; 82570; 82607; 82805; 82962; 83036; 83605; 83735; 83880; 84132; 84300; 84443; 84484; 85007; 85014; 85018; 85025; 85027; 85610; 85730; 86592; 86850; 86900; 86901; 86920; 87040; 87081; 87086; 87426; 87493; 93005; 93306; 93925; 93970; 94640; 96365; 96375; 97110; 97116; 97163; 97530; 99291; C9113; G0378; J0692; J0696; J2001; J2405; J2543; J3480; P9047

== ENCOUNTER 2023-05-07 00:30 | Inpatient (IN) | payer OTHER, MEDICAID ==
[~2023-05-07] VITALS: Ht 157.5 cm; Wt 61.0 kg
[~2023-05-07 00:30] MED LIST: DULO20CA PO; EMPA1TAB PO; PREG150C PO; SACC250C PO; SPIR25TA PO; VANC125PO PO
[2023-05-07 00:58] VITALS: PULSE 92; RESP 20; O2SAT 96
[2023-05-07 02:03] LABS: Urine Bacteria FEW /hpf (None Seen); Urine Blood Negative /uL (Negative); Urine Clarity HAZY (Clear); Urine Color Yellow (Yellow); Urine Protein, UAD 1+ (Negative); Urine Specific Gravity 1.023 (1.001-1.035); Urine Urobilinogen Normal (Negative); Urine WBC 10 /hpf (0 - 5); Urine pH 5.5 (5.0-8.0)
[2023-05-07 02:11] LABS: Alanine Aminotransferase 80 U/L (7-40); Albumin 3.9 g/dL (3.2-4.8); Alkaline Phosphatase 453 U/L (46-116); Anion Gap 11 (5-15); Aspartate Aminotransferase 59 U/L (13-40); BUN/Creatinine Ratio 12.1 (10.0-20.0); Blood Urea Nitrogen 18 mg/dL (9-23); Calcium 9.2 mg/dL (8.7-10.4); Carbon Dioxide 20 mmol/L (20-30); Chloride 100 mmol/L (98-107); Glucose 129 mg/dL (74-106); Lactic Acid w/Reflex 3.3 mmol/L (0.4-2.0); Lipase 55 U/L (12-53); Potassium 4.9 mmol/L (3.5-5.1); Sodium 131 mmol/L (136-145)
[2023-05-07 02:12] LABS: Bilirubin, Total 2.4 mg/dL (0.2-1.0)
[2023-05-07 02:16] LABS: Basophils # (auto) 0.1 10 ^3/uL (0-0.2); Eosinophils # (auto) 0 10 ^3/uL (0-0.8); Eosinophils % (auto) 0.3 % (0.0-7.0); Nucleated Red Blood Cells % 0.7 %
[2023-05-07 02:18] LABS: Basophils % (auto) 0.8 % (0.0-2.0); Hematocrit 41.5 % (36.0-46.0); Hemoglobin 12.8 g/dL (12.2-16.2); Lymphocytes # (auto) 2.1 10 ^3/uL (0.4-5.4); Lymphocytes % (auto) 16.7 % (10.0-50.0); Mean Corpuscular Hemoglobin 25.1 pg (28.0-32.0); Mean Corpuscular Hgb Conc. 30.8 g/dL (32.0-36.0); Mean Corpuscular Volume 81.5 fL (80.0-100.0); Monocytes # (auto) 1.1 10 ^3/uL (0-1.3); Monocytes % (auto) 8.6 % (0.0-12.0); Neutrophils # (auto) 9.3 10 ^3/uL (1.6-8.6); Neutrophils % (auto) 73.6 % (37.0-80.0); Red Blood Cells 5.09 10^6/uL (4.0-5.20); White Blood Cell 12.6 10^3/uL (4.4-10.8)
[2023-05-07 02:21] LABS: Red Cell Distribution Width 35.3 % (11.8-14.3)
[2023-05-07] MEDS ORDERED: FUROSEMIDE 40 MG/4 ML VIAL IV ONE (02:30)
[2023-05-07] MEDS ORDERED: VANCOMYCIN 1GM/250ML 250 ML IV ONE (02:30)
[2023-05-07] MEDS ORDERED: ASPirin 300 MG RECTAL SUPP PR ONE (02:30)
[2023-05-07] MEDS ORDERED: PIPERACILLIN-TAZO 4.5GM 100 ML IV ONE (02:30)
[2023-05-07 02:34] LABS: Anisocytosis Moderate; Giant Platelets Few; Platelet Estimate Adequate
[2023-05-07 02:35] LABS: Hypochromia Moderate
[2023-05-07] MEDS ORDERED: ONDANSETRON HCL 4 MG/2 ML VIAL IV PRN (04:00)
[2023-05-07] MEDS ORDERED: VANCOMYCIN PER PHARMACY 0 MG IV SCH (04:00)
[2023-05-07] MEDS ORDERED: DOCUSATE SOD 100 MG CAP PO PRN (04:00)
[2023-05-07] MEDS ORDERED: IBUPROFEN 600 MG TAB PO PRN (04:00)
[2023-05-07 04:41] LABS: Basophils # (auto) 0 10 ^3/uL (0-0.2); Basophils % (auto) 0.3 % (0.0-2.0); Eosinophils # (auto) 0 10 ^3/uL (0-0.8); Hemoglobin 9.5 g/dL (12.2-16.2); Monocytes # (auto) 0.5 10 ^3/uL (0-1.3); Nucleated Red Blood Cells % 0.4 %; White Blood Cell 8.2 10^3/uL (4.4-10.8)
[2023-05-07 04:43] LABS: Eosinophils % (auto) 0.3 % (0.0-7.0); Hematocrit 30.9 % (36.0-46.0); Lymphocytes # (auto) 1.3 10 ^3/uL (0.4-5.4); Lymphocytes % (auto) 16.3 % (10.0-50.0); Mean Corpuscular Hemoglobin 25.1 pg (28.0-32.0); Mean Corpuscular Hgb Conc. 30.8 g/dL (32.0-36.0); Mean Corpuscular Volume 81.4 fL (80.0-100.0); Monocytes % (auto) 6.7 % (0.0-12.0); Neutrophils # (auto) 6.3 10 ^3/uL (1.6-8.6); Neutrophils % (auto) 76.4 % (37.0-80.0); Red Blood Cells 3.79 10^6/uL (4.0-5.20)
[2023-05-07 04:46] LABS: Red Cell Distribution Width 34.4 % (11.8-14.3)
[2023-05-07 04:58] LABS: Alanine Aminotransferase 57 U/L (7-40); Albumin 2.7 g/dL (3.2-4.8); Alkaline Phosphatase 329 U/L (46-116); Anion Gap 7 (5-15); Aspartate Aminotransferase 44 U/L (13-40); BUN/Creatinine Ratio 11.9 (10.0-20.0); Bilirubin, Total 1.6 mg/dL (0.2-1.0); Blood Urea Nitrogen 17 mg/dL (9-23); Carbon Dioxide 23 mmol/L (20-30); Chloride 102 mmol/L (98-107); Glucose 149 mg/dL (74-106); Potassium 4.1 mmol/L (3.5-5.1); Sodium 132 mmol/L (136-145); Total Protein 5.7 g/dL (5.7-8.2)
[2023-05-07] MEDS ORDERED: NITROGLYCERIN 0.4 MG SL TAB SL PRN (05:45)
[2023-05-07] MEDS ORDERED: MORPHINE SULFATE INJ 2 MG/ml SYRG IV PRN (05:45)
[2023-05-07] MEDS: SODIUM CHLOR 0.9% PF (SALINE LOCK) 10ML VIAL/SYR IV SCH ×3 (06:05→22:00)
[2023-05-07 07:50] VITALS: PULSE 71; RESP 17; O2SAT 100
[2023-05-07] MEDS ORDERED: cefTRIAXone 1GM/50ML D5W 50 ML IV SCH (09:00)
[2023-05-07] MEDS ORDERED: ASPirin 81 mg TAB PO SCH (10:00)
[2023-05-07] MEDS ORDERED: FAMOTIDINE (10MG/ML) 2ML VL IV SCH ×2 (10:00→10:47)
[2023-05-07] MEDS ORDERED: FUROSEMIDE 40 MG/4 ML VIAL IV SCH (10:00)
[2023-05-07] MEDS: CARVEDILOL 3.125 MG TAB PO SCH ×2 (11:24→23:21)
[2023-05-07 21:00] VITALS: PULSE 77; RESP 14; O2SAT 100
[2023-05-07] MEDS ORDERED: APIXABAN 2.5 MG TAB PO SCH (22:00)
[2023-05-07] MEDS ORDERED: SACUBITRIL-VALSARTAN 24mg/26mg TAB PO SCH (22:00)
[2023-05-07] MEDS ORDERED: DRONEDARONE HCL 400 MG TAB PO SCH (22:00)
[2023-05-08 04:07] LABS: Basophils # (auto) 0.1 10 ^3/uL (0-0.2); Eosinophils # (auto) 0 10 ^3/uL (0-0.8); Eosinophils % (auto) 0.3 % (0.0-7.0); Monocytes # (auto) 0.7 10 ^3/uL (0-1.3)
[2023-05-08 04:11] LABS: Basophils % (auto) 1.1 % (0.0-2.0); Hematocrit 34.7 % (36.0-46.0); Lymphocytes # (auto) 1.3 10 ^3/uL (0.4-5.4); Lymphocytes % (auto) 13.5 % (10.0-50.0); Mean Corpuscular Hemoglobin 25.5 pg (28.0-32.0); Mean Corpuscular Hgb Conc. 31.7 g/dL (32.0-36.0); Mean Corpuscular Volume 80.3 fL (80.0-100.0); Monocytes % (auto) 7.3 % (0.0-12.0); Neutrophils # (auto) 7.6 10 ^3/uL (1.6-8.6); Neutrophils % (auto) 77.8 % (37.0-80.0); Nucleated Red Blood Cells % 0.3 %; Red Blood Cells 4.32 10^6/uL (4.0-5.20); White Blood Cell 9.7 10^3/uL (4.4-10.8)
[2023-05-08 04:13] LABS: Red Cell Distribution Width 34.2 % (11.8-14.3)
[2023-05-08 04:31] LABS: Alkaline Phosphatase 308 U/L (46-116)
[2023-05-08 04:32] LABS: Alanine Aminotransferase 44 U/L (7-40); Albumin 2.7 g/dL (3.2-4.8); Anion Gap 7 (5-15); Aspartate Aminotransferase 38 U/L (13-40); BUN/Creatinine Ratio 10.1 (10.0-20.0); Bilirubin, Total 1.7 mg/dL (0.2-1.0); Blood Urea Nitrogen 14 mg/dL (9-23); Calcium 7.9 mg/dL (8.7-10.4); Carbon Dioxide 29 mmol/L (20-30); Chloride 100 mmol/L (98-107); Glucose 83 mg/dL (74-106); Potassium 3.2 mmol/L (3.5-5.1); Sodium 136 mmol/L (136-145)
[2023-05-08 04:33] LABS: Total Protein 5.8 g/dL (5.7-8.2)
[2023-05-08] MEDS ORDERED: ALBUMIN 25% 50 ML IV ONE (05:15)
[2023-05-08] MEDS ORDERED: POTASSIUM CHL 20MEQ/100ML 100 ML IV SCH (05:30)
[2023-05-08] MEDS ORDERED: POTASSIUM CHLORIDE 40 MEQ, LIDOCAINE 1% (LOCAL ANESTH.) 4 ML in SODIUM CHL 0.9% 250 ML IV ONE (05:30)
[2023-05-08] MEDS ORDERED: ALBUMIN 25% 100 ML IV ONE (05:30)
[2023-05-08] MEDS ORDERED: CALCIUM GLUC 1,000mg/50ml-NS 50 ML IV ONE (05:30)
[2023-05-08] MEDS: SODIUM CHLOR 0.9% PF (SALINE LOCK) 10ML VIAL/SYR IV SCH (06:55)
[2023-05-08 07:00] VITALS: BP 91/41; PULSE 48; RESP 12; TEMP 97.9; O2SAT 100
[2023-05-08] MEDS ORDERED: EMPAGLIFLOZIN 10 MG TAB PO SCH (07:00)
[2023-05-08] MEDS ORDERED: VANCOMYCIN 1GM/250ML 250 ML IV ONE (08:45)
[2023-05-08] MEDS ORDERED: SPIRONOLACTONE 25 MG TAB PO SCH (10:00)
== END 2023-05-08 07:06 | disposition hospice, home (50) | DRG 71 ==
LOC: EDSEX 00:30 → EDBD 00:30 → ER 00:30 → TELE 05:47
PROVIDERS: ADMIT Nurse Practitioner Family; ATTEND Nurse Practitioner Family
DX: G93.41 Metabolic encephalopathy (principal); E87.1 Hypo-osmolality and hyponatremia; R17 Unspecified jaundice; I42.0 Dilated cardiomyopathy; I50.22 Chronic systolic (congestive) heart failure; D69.6 Thrombocytopenia, unspecified; D64.9 Anemia, unspecified; R74.01 Elevation of levels of liver transaminase levels; Z66 Do not resuscitate; I11.0 Hypertensive heart disease with heart failure; I48.0 Paroxysmal atrial fibrillation; I34.0 Nonrheumatic mitral (valve) insufficiency; I27.20 Pulmonary hypertension, unspecified; I44.7 Left bundle-branch block, unspecified; N28.9 Disorder of kidney and ureter, unspecified; Z79.899 Other long term (current) drug therapy; Z86.73 Personal history of transient ischemic attack (TIA), and cerebral infarction without residual deficits; Z98.82 Breast implant status; Z51.5 Encounter for palliative care; Z85.3 Personal history of malignant neoplasm of breast; Z87.891 Personal history of nicotine dependence
CPT/HCPCS: 36415; 70450; 71045; 80053; 80202; 81001; 83605; 83690; 83880; 84484; 85025; 87040; 93005; 93970; 96365; 99291; G0378; J0696; J2543; J3490; P9047